=== PATIENT | male | born 1945 | race Caucasian/White ===

== ENCOUNTER → 2016-08-05 | Outpatient (CLI) | payer MEDICARE ==
[~2016-08-05] VITALS: Ht 188 cm; Wt 127.0 kg
[~2016-08-05] MED LIST: ASPI81TA85 PO; LIDOCAINE 2% INJ 100 MG/5 ML SDV (FOR ANES.) As Ordered ONE; METF750T PO; NS 1,000 ML IV SCH; PROPOFOL 500 MG/50 ML VIAL As Ordered ONE; ROSU10TA PO; TYLE325T5 PO
--- NOTE | 2016-08-05 13:51 | ROOR ---
Patient Name: Michael Pressley Procedure Date: 08/05/2016 1:24 PM Date of : 1945 Age: 70 Room: [facility] Gender: Male Note Status: Finalized Procedure: Colonoscopy to Cecum + Cold Snare Polypectomy + Hemoclip Indications: High risk colon cancer surveillance: Personal history of colonic polyps, Last colonoscopy: 2013 Providers: Aba Lyons MD Referring MD: ISIDORO SIMPSON JR, MD Requesting Provider: Medicines: Monitored Anesthesia Care Complications: No immediate complications. Procedure: Pre-Anesthesia Assessment: - The heart rate, respiratory rate, oxygen saturations, blood pressure, adequacy of pulmonary ventilation, and response to care were monitored throughout the procedure. The Colonoscope was introduced through the anus and advanced to the cecum, identified by appendiceal orifice and ileocecal valve. The colonoscopy was performed without difficulty. The patient tolerated the procedure well. The quality of the bowel preparation was excellent. Findings: The perianal and digital rectal examinations were normal. Non-bleeding internal hemorrhoids were found during retroflexion. The hemorrhoids were small and Grade I (internal hemorrhoids that do not prolapse). Multiple small and large-mouthed diverticula were found in the recto-sigmoid colon, sigmoid colon and descending colon. A medium polyp was found in the hepatic flexure. The polyp was sessile. The polyp was removed with a cold snare. Resection and retrieval were complete. To prevent bleeding after the polypectomy, one hemostatic clip was successfully placed (MR conditional). There was no bleeding at the end of the procedure. The exam was otherwise without abnormality on direct and retroflexion views. Impression: - Non-bleeding internal hemorrhoids. - Diverticulosis in the recto-sigmoid colon, in the sigmoid colon and in the descending colon. - One medium polyp at the hepatic flexure, removed with a cold snare. Resected and retrieved. Clip (MR conditional) was placed. - The examination was otherwise normal on direct and retroflexion views. - The exam was otherwise normal to the cecum. Recommendation: - Patient has a contact number available for emergencies. The signs and symptoms of potential delayed complications were discussed with the patient. Return to normal activities tomorrow. Written discharge instructions were provided to the patient. - High fiber diet. - Discharge patient to home. - Continue present medications. - Await pathology results. - Telephone GI clinic for pathology results in 1 week. - Repeat colonoscopy in 5 years for surveillance based on pathology results. - Return to referring physician. - The findings and recommendations were discussed with the patient's family. Aba Lyons MD Aba Lyons MD 08/05/2016 1:50:43 PM This report has been signed electronically. Number of Addenda: 0 Note Initiated On: 08/05/2016 1:24 PM Estimated Blood Loss: Estimated blood loss: none.
[2016-08-05 15:37] VITALS: BP 147/103
--- NOTE | 2016-08-07 09:54 | ECGEPIP ---
Stationary ECG Study [facility] - ED Test Date: 2016-08-05 Pat Name: DARRYL OLVERA Department: Room: - Gender: M Fnps: TONI : 1945 Requested By: Aba Lyons Order Number: [id number] Reading MD: Jose Matson Measurements Intervals [place] Rate: 68 P: 27 WY: 215 QRS: -25 QRSD: 112 T: 10 QT: 413 QTc: 441 Interpretive Statements SINUS RHYTHM WITH FIRST DEGREE AV BLOCK BORDERLINE LEFT AXIS DEVIATION MODERATE INTRAVENTRICULAR CONDUCTION DELAY SIMILAR TO 12/18/13 Electronically Signed On 08-07-2016 9:54:50 EST by Jose Matson
== END | disposition home or self-care (01) ==
LOC: M OPP 12:27
PROVIDERS: ATTEND Internal Medicine Gastroenterology
DX: Z12.11 Encounter for screening for malignant neoplasm of colon (principal); K64.0 First degree hemorrhoids; K57.30 Diverticulosis of large intestine without perforation or abscess without bleeding; D12.3 Benign neoplasm of transverse colon; E78.00 Pure hypercholesterolemia, unspecified; E11.9 Type 2 diabetes mellitus without complications; M19.90 Unspecified osteoarthritis, unspecified site; R06.83 Snoring; Z86.79 Personal history of other diseases of the circulatory system; Z79.82 Long term (current) use of aspirin; Z79.899 Other long term (current) drug therapy; Z79.84 Long term (current) use of oral hypoglycemic drugs

== ENCOUNTER 2016-10-04 16:29 | Day surgery (SDC) | payer MEDICARE ==
[~2016-10-04] VITALS: Ht 188 cm; Wt 127.0 kg
[~2016-10-04 16:29] MED LIST changes: +CRES10TA32 PO; -LIDOCAINE 2% INJ 100 MG/5 ML SDV (FOR ANES.) As Ordered ONE; -NS 1,000 ML IV SCH; -PROPOFOL 500 MG/50 ML VIAL As Ordered ONE; -ROSU10TA PO
[2016-10-04] MEDS ORDERED: CINN500C9 PO (16:46)
[2016-10-04] MEDS ORDERED: GARL1CAP PO (16:46)
[2016-10-04] MEDS ORDERED: NATU400T PO (16:46)
[2016-10-04] MEDS ORDERED: POTA99TA PO (16:46)
[2016-10-04] MEDS ORDERED: GLUCAGON FOR INJ 1 MG VIAL (J1610) IV STA ×2 (17:55→18:46)
[2016-10-04] MEDS ORDERED: PHENYLephrine HCL 500 MCG/5 ML (100MCG/ML) SYRINGE (J2370) As Ordered ONE (22:52)
[2016-10-04] MEDS ORDERED: MIDAZOLAM INJ 2 MG/2 ML VIAL (J2250) As Ordered ONE (22:52)
[2016-10-04] MEDS ORDERED: PROPOFOL 200 MG/20 ML VIAL As Ordered ONE (22:52)
[2016-10-04] MEDS ORDERED: fentaNYL 100 MCG/2 ML INJECTION (J3010) As Ordered ONE (22:52)
[2016-10-04] MEDS ORDERED: LIDOCAINE 2% INJ 100 MG/5 ML SDV (FOR ANES.) As Ordered ONE (22:52)
[2016-10-04] MEDS ORDERED: SUCCINYLCHOLINE 100 MG/5 ML SYRINGE (J0330) As Ordered ONE (22:52)
[2016-10-04] MEDS ORDERED: ONDANSETRON 4MG/2ML VIAL (J2405) As Ordered ONE (22:53)
--- NOTE | 2016-10-04 23:13 | ROOR ---
Patient Name: Perry Pressley Procedure Date: 10/04/2016 10:14 PM Date of : 1945 Age: 71 Gender: Male Note Status: Finalized Procedure: Upper GI endoscopy Indications: Heartburn, Foreign body in the esophagus Providers: Blayne ACRRERA MD Referring MD: Aba yLons MD, 3. Emergency Dept 3. Emergency Dept Requesting Provider: Medicines: Monitored Anesthesia Care Complications: No immediate complications. Procedure: Pre-Anesthesia Assessment: - The heart rate, respiratory rate, oxygen saturations, blood pressure, adequacy of pulmonary ventilation, and response to care were monitored throughout the procedure. The Endoscope was introduced through the mouth, and advanced to the second part of duodenum. Findings: Food was found in the lower third of the esophagus. Removal of food was accomplished. One moderate stenosis was found at the gastroesophageal junction. This measured 1 cm (in length) and was traversed. This was biopsied with a cold forceps for histology. The exam was otherwise without abnormality. Impression: - Food in the lower third of the esophagus. Removal was successful. - Esophagitis - Esophageal stenosis. Biopsied. - The examination was otherwise normal. Recommendation: - Use Prilosec (omeprazole) 40 mg PO daily. - Telephone endoscopist for pathology results in 2 weeks. - Repeat upper endoscopy at the next available appointment for retreatment/dilation of stricture. Blayne Carrera MD Blayne CARRERA MD 10/04/2016 11:13:06 PM This report has been signed electronically. Number of Addenda: 0 Note Initiated On: 10/04/2016 10:14 PM Estimated Blood Loss: Estimated blood loss: none.
[2016-10-04] MEDS ORDERED: ONDANSETRON 4MG/2ML VIAL (J2405) IV PRN (23:45)
[2016-10-04] MEDS ORDERED: PANTOPRAZOLE 40MG TAB (PROTONIX) PO ONE (23:45)
[2016-10-04] MEDS ORDERED: LR 1,000 ML IV SCH (23:45)
[2016-10-05 00:20] VITALS: BP 136/93
== END 2016-10-05 01:17 | disposition home or self-care (01) ==
LOC: M ED 17:35 → M SDC 21:15 → M MSPAV 10-05 00:20 → M SDC 10-05 01:17
PROVIDERS: ATTEND Internal Medicine Gastroenterology
DX: T18.128A Food in esophagus causing other injury, initial encounter (principal); K22.2 Esophageal obstruction; K20.9 Esophagitis, unspecified; R12 Heartburn; E78.5 Hyperlipidemia, unspecified; E66.9 Obesity, unspecified; G47.30 Sleep apnea, unspecified; E11.9 Type 2 diabetes mellitus without complications; I71.4 Abdominal aortic aneurysm, without rupture; R29.898 Other symptoms and signs involving the musculoskeletal system; R06.83 Snoring; R06.09 Other forms of dyspnea; Z79.899 Other long term (current) drug therapy; Z79.82 Long term (current) use of aspirin; Z87.442 Personal history of urinary calculi
CPT/HCPCS: 43239; 43247; 88305; 99281; J0330; J1610; J2250; J2370; J2405; J3010

== ENCOUNTER 2017-02-11 09:58 | Outpatient (CLI) | payer MEDICARE ==
[~2017-02-11] VITALS: Ht 188 cm; Wt 122.5 kg
[~2017-02-11 09:58] MED LIST changes: +CINN500C9 PO; +GARL10004 PO; +NATU400T PO; +PANT40TA2 PO; +POTA99TA PO
[2017-02-11] MEDS ORDERED: NS 1,000 ML IV ONE (10:15)
[2017-02-11] MEDS ORDERED: LIDOCAINE 2% INJ 100 MG/5 ML SDV (FOR ANES.) As Ordered ONE (10:43)
[2017-02-11] MEDS ORDERED: PROPOFOL 200 MG/20 ML VIAL As Ordered ONE (10:43)
--- NOTE | 2017-02-11 10:54 | ROOR ---
Patient Name: Perry Pressley Procedure Date: 02/11/2017 10:27 AM Date of : 1945 Age: 71 Room: [facility] Gender: Male Note Status: Finalized Procedure: Upper GI endoscopy Indications: Dysphagia Providers: Aba Lyons MD Referring MD: ISIDORO SIMPSON JR, MD Requesting Provider: Medicines: Monitored Anesthesia Care Complications: No immediate complications. Procedure: Pre-Anesthesia Assessment: - The heart rate, respiratory rate, oxygen saturations, blood pressure, adequacy of pulmonary ventilation, and response to care were monitored throughout the procedure. The Endoscope was introduced through the mouth, and advanced to the second part of duodenum. The upper GI endoscopy was accomplished without difficulty. The patient tolerated the procedure well. Findings: The Z-line was regular and was found 40 cm from the incisors. No other significant abnormalities were identified in a careful examination of the stomach. The exam of the duodenum was otherwise normal. Impression: - Z-line regular, 40 cm from the incisors. - No specimens collected. - The examination was otherwise normal. Recommendation: - Patient has a contact number available for emergencies. The signs and symptoms of potential delayed complications were discussed with the patient. Return to normal activities tomorrow. Written discharge instructions were provided to the patient. - Soft diet. - Discharge patient to home. - Follow an antireflux regimen. - Continue present medications. - Return to referring physician. - The findings and recommendations were discussed with the patient's family. Aba Lyons MD Aba Lyons MD 02/11/2017 10:53:55 AM This report has been signed electronically. Number of Addenda: 0 Note Initiated On: 02/11/2017 10:27 AM Estimated Blood Loss: Estimated blood loss: none.
[2017-02-11 11:10] VITALS: BP 163/93
== END 2017-02-11 11:35 | disposition home or self-care (01) ==
LOC: M OPP 09:58
PROVIDERS: ATTEND Internal Medicine Gastroenterology
DX: R13.10 Dysphagia, unspecified (principal); R63.4 Abnormal weight loss; R63.0 Anorexia; E78.5 Hyperlipidemia, unspecified; I71.4 Abdominal aortic aneurysm, without rupture; E11.9 Type 2 diabetes mellitus without complications; R12 Heartburn; M19.90 Unspecified osteoarthritis, unspecified site; M48.00 Spinal stenosis, site unspecified; G47.30 Sleep apnea, unspecified; R06.83 Snoring; Z87.442 Personal history of urinary calculi; Z79.82 Long term (current) use of aspirin; Z79.899 Other long term (current) drug therapy; Z79.84 Long term (current) use of oral hypoglycemic drugs; Z80.3 Family history of malignant neoplasm of breast

== ENCOUNTER → 2020-12-20 | Outpatient (CLI) | payer MEDICARE ==
[~2020-12-20] MED LIST changes: +AMLO1TAB24 PO; +ASPI81TA26 PO; -ASPI81TA85 PO; +ASPI81TA86 PO; +CINN500C15 PO; +CRES10TA PO; -CRES10TA32 PO; +GARL500C2 PO; -METF750T PO; +METF750T36 PO; -PANT40TA2 PO; +PANT40TA29 PO; +POTA99TA14 PO; +VITA400C53 PO; +VITMTA PO
== END ==
LOC: M LABSMTC 10:22
PROVIDERS: ATTEND Anesthesiology
DX: Z01.812 Encounter for preprocedural laboratory examination (principal)

== ENCOUNTER 2020-12-25 10:03 | Day surgery (SDC) | payer MEDICARE ==
[~2020-12-25] VITALS: Ht 188 cm; Wt 118.4 kg
[~2020-12-25 10:03] MED LIST changes: +NS 1,000 ML IV ONE
[2020-12-25] MEDS ORDERED: propofoL 200 MG/20 ML VIAL As Ordered ONE (11:47)
[2020-12-25] MEDS ORDERED: LIDOCAINE 2% 100MG/5ML SDV (FOR ANES.) As Ordered ONE (11:47)
--- NOTE | 2020-12-25 12:27 | ROOR ---
Patient Name: Perry Pressley Procedure Date: 12/25/2020 12:03 PM Date of : 1945 Age: 75 Room: [facility] Gender: Male Note Status: Finalized Procedure: Total Colonoscopy to Cecum + Cold Snare Polypectomy Indications: High risk colon cancer surveillance: Personal history of colonic polyps, Last colonoscopy: 2016 Providers: Aba Lyons MD Referring MD: ISIDORO SIMPSON JR, MD Requesting Provider: Medicines: Monitored Anesthesia Care Complications: No immediate complications. Procedure: Pre-Anesthesia Assessment: - The heart rate, respiratory rate, oxygen saturations, blood pressure, adequacy of pulmonary ventilation, and response to care were monitored throughout the procedure. The Colonoscope was introduced through the anus and advanced to the cecum, identified by appendiceal orifice and ileocecal valve. The colonoscopy was performed without difficulty. The patient tolerated the procedure well. The quality of the bowel preparation was good. Findings: The perianal and digital rectal examinations were normal. Non-bleeding internal hemorrhoids were found during retroflexion. The hemorrhoids were small and Grade I (internal hemorrhoids that do not prolapse). Scattered small-mouthed diverticula were found in the recto-sigmoid colon, sigmoid colon and descending colon. Two sessile polyps were found in the ascending colon. The polyps were small in size. These polyps were removed with a cold snare. Resection and retrieval were complete. The exam was otherwise without abnormality on direct and retroflexion views. Impression: - Non-bleeding internal hemorrhoids. - Diverticulosis in the recto-sigmoid colon, in the sigmoid colon and in the descending colon. - Two small polyps in the ascending colon, removed with a cold snare. Resected and retrieved. - The examination was otherwise normal on direct and retroflexion views. - The exam was otherwise normal to the cecum. Recommendation: - Patient has a contact number available for emergencies. The signs and symptoms of potential delayed complications were discussed with the patient. Return to normal activities tomorrow. Written discharge instructions were provided to the patient. - High fiber diet. - Discharge patient to home. - Continue present medications. - Await pathology results. - Telephone GI clinic for pathology results in 1 week. - Repeat colonoscopy in 5 years for surveillance based on pathology results. - Return to referring physician. - The findings and recommendations were discussed with the patient's family. Procedure Code(s): --- Professional --- 76105, Colonoscopy, flexible; with removal of tumor(s), polyp(s), or other lesion(s) by snare technique Diagnosis Code(s): --- Professional --- Z86.010, Personal history of colonic polyps K64.0, First degree hemorrhoids K63.5, Polyp of colon K57.30, Diverticulosis of large intestine without perforation or abscess without bleeding CPT copyright 2019 [employer]. All rights reserved. The codes documented in this report are preliminary and upon glass washer review may be revised to meet current compliance requirements. Aba Loyns MD Aba Lyons MD 12/25/2020 12:27:21 PM Electronically signed by Aba Lyons MD Number of Addenda: 0 Note Initiated On: 12/25/2020 12:03 PM Estimated Blood Loss: Estimated blood loss: none.
[2020-12-25 13:02] VITALS: BP 159/92
== END 2020-12-25 13:03 | disposition home or self-care (01) ==
LOC: M OPP 10:03
PROVIDERS: ATTEND Internal Medicine Gastroenterology
DX: Z12.11 Encounter for screening for malignant neoplasm of colon (principal); Z86.010 Personal history of colon polyps; D12.2 Benign neoplasm of ascending colon; K57.30 Diverticulosis of large intestine without perforation or abscess without bleeding; K64.0 First degree hemorrhoids; R13.10 Dysphagia, unspecified; Z79.82 Long term (current) use of aspirin; Z79.84 Long term (current) use of oral hypoglycemic drugs; Z79.899 Other long term (current) drug therapy

== ENCOUNTER → 2021-01-04 | Outpatient (CLI) | payer MEDICARE ==
[~2021-01-04] MED LIST changes: +ISOVUE-300 61% 50ML VIAL As Ordered ONE; +LIDOCAINE 1% MDV 20ML VIAL As Ordered ONE; -NS 1,000 ML IV ONE; +methylPREDNISolone SUSP 40MG/ML 1ML VIAL (DEPO MEDROL) As Ordered ONE
--- NOTE | 2021-01-04 19:34 | REP ---
INDICATION: RT SHOULDER OA. COMPARISON: None. TECHNIQUE: The procedure was performed under the direct supervision of Dr. Junior. The benefits and risks including but not limited to pain infection bleeding and anaphylaxis were explained to the patient and informed consent was obtained. The right glenohumeral joint space was localized using fluoroscopic guidance. The skin was prepped and draped in a sterile fashion. 1% lidocaine was used as a local anesthetic. Using fluoroscopic guidance, and last image hold technology, a 22 gauge spinal needle was inserted and advanced into the joint. 1 mL of Isovue-300 was injected to verify placement. 7 mL of a solution containing 5 mL of 1% lidocaine and 2 mL of Depo-Medrol 40 mg was injected. The needle was then removed. The patient tolerated the procedure well and there were no immediate complications. Less than 6 seconds of fluoroscopy time was utilized for this procedure. FINDINGS: None IMPRESSION: Fluoro guidance for right shoulder injection. <Electronically signed by Rommel Morgan > 01/04/21 1613 <Electronically signed by Steven Junior > 01/04/21 1931
== END ==
LOC: M RADPRO 10:27
PROVIDERS: ATTEND Physician Assistant
DX: M19.011 Primary osteoarthritis, right shoulder (principal)
CPT/HCPCS: 20610; 77002; J1030; Q9967

== ENCOUNTER 2021-03-04 07:17 | Day surgery (SDC) | payer MEDICARE ==
[~2021-03-04] VITALS: Ht 188 cm; Wt 117.9 kg
[~2021-03-04 07:17] MED LIST changes: -ISOVUE-300 61% 50ML VIAL As Ordered ONE; -LIDOCAINE 1% MDV 20ML VIAL As Ordered ONE; -methylPREDNISolone SUSP 40MG/ML 1ML VIAL (DEPO MEDROL) As Ordered ONE
[2021-03-04] MEDS ORDERED: GLUCAGON INJ 1MG VIAL IV STA (08:44)
[2021-03-04 09:19] LABS: BASO % 0.4 % (0.0-1.0); EOS # 0.1 10^3/uL (0.0-0.5); EOS % 0.8 % (0.0-3.0); HEMATOCRIT 47.2 % (42.0-52.0); HEMOGLOBIN 15.5 g/dl (13.5-17.5); LYMPH # 1.5 10^3/uL (1.5-5.0); LYMPH % 15.9 % (24.0-44.0); MEAN CORPUSCULAR HEMOGLOBIN 31.4 pg (27.0-33.0); MEAN CORPUSCULAR HGB CONC 32.8 g/dl (32.0-36.5); MEAN CORPUSCULAR VOLUME 95.7 fl (80.0-96.0); MONO # 0.6 10^3/uL (0.0-0.8); NEUTROPHILS # 6.9 10^3/uL (1.5-8.5); NEUTROPHILS % 75.6 % (36.0-66.0); PLATELET COUNT, AUTOMATED 223 10^3/uL (150-450); RED BLOOD COUNT 4.93 10^6/uL (4.30-6.10); WHITE BLOOD COUNT 9.1 10^3/uL (4.0-10.0)
[2021-03-04 09:56] LABS: BLOOD UREA NITROGEN 21 MG/DL (7-18); CALCIUM LEVEL 9.2 MG/DL (8.8-10.2); CARBON DIOXIDE LEVEL 29 MEQ/L (21-32); CHLORIDE LEVEL 110 MEQ/L (98-107); CREATININE FOR GFR 1.01 MG/DL (0.70-1.30); GLOMERULAR FILTRATION RATE > 60.0 (>42); GLUCOSE, FASTING 153 MG/DL (70-100); POTASSIUM SERUM 4.6 MEQ/L (3.5-5.1); SODIUM LEVEL 145 MEQ/L (136-145)
[2021-03-04 10:03] LABS: RSV AMPLIFICATION NEGATIVE (NEGATIVE)
[2021-03-04] MEDS ORDERED: ROSU20TA5 PO (10:33)
[2021-03-04] MEDS ORDERED: HOME MED LIST COMPLETE! XX SCH (10:35)
[2021-03-04] MEDS ORDERED: MIDAZOLAM INJ 2MG/2ML VIAL (J2250 PER 1MG) As Ordered ONE (13:36)
[2021-03-04] MEDS ORDERED: propofoL 200 MG/20 ML VIAL As Ordered ONE (13:36)
[2021-03-04] MEDS ORDERED: LIDOCAINE 2% 100MG/5ML SDV (FOR ANES.) As Ordered ONE (13:36)
[2021-03-04] MEDS ORDERED: fentaNYL 100 MCG/2 ML INJECTION (J3010) As Ordered ONE (13:36)
[2021-03-04] MEDS ORDERED: ROCURONIUM BROMIDE 50 MG/5 ML VIAL As Ordered ONE (13:46)
[2021-03-04] MEDS ORDERED: SUGAMMADEX SODIUM 500 MG/5 ML VIAL (BRIDION) As Ordered ONE (14:08)
[2021-03-04] MEDS ORDERED: LR 1,000 ML IV SCH (15:10)
[2021-03-04] MEDS ORDERED: ONDANSETRON 4MG/2ML VIAL IV PRN (15:10)
[2021-03-04] MEDS ORDERED: fentaNYL 100 MCG/2 ML INJECTION (J3010) IV PRN (15:10)
--- NOTE | 2021-03-04 15:13 | ROOR ---
Patient Name: Perry Pressley Procedure Date: 03/04/2021 11:58 AM Date of : 1945 Age: 75 Gender: Male Note Status: Finalized Procedure: Upper GI endoscopy Indications: Foreign body in the esophagus Providers: Blayne Carrera MD Referring MD: 2. Inpatient 2. Inpatient, Aba Lyons MD Requesting Provider: Medicines: General Anesthesia Complications: No immediate complications. Procedure: Pre-Anesthesia Assessment: - The heart rate, respiratory rate, oxygen saturations, blood pressure, adequacy of pulmonary ventilation, and response to care were monitored throughout the procedure. The Endoscope was introduced through the mouth, and advanced to the second part of duodenum. The upper GI endoscopy was accomplished without difficulty. The patient tolerated the procedure well. Findings: Food was found in the lower third of the esophagus. Removal of food was accomplished. Moderately severe esophagitis was found in the lower third of the esophagus. Biopsies were taken with a cold forceps for histology. A single 15 mm pedunculated polyp with stigmata of recent bleeding was found in the cardia. The polyp was removed with a cold snare. Resection and retrieval were complete. To prevent bleeding after the polypectomy, three hemostatic clips were successfully placed. A single 10 mm semi-sessile polyp with no stigmata of recent bleeding was found in the gastric antrum. The polyp was removed with a cold snare. Resection and retrieval were complete. To prevent bleeding after the polypectomy, two hemostatic clips were successfully placed. The exam of the stomach was otherwise normal. The examined duodenum was normal. Impression: - Food in the lower third of the esophagus. Removal was successful. - Moderately severe esophagitis. Biopsied. - A single gastric cardia polyp-pedunculated, hemorrhagic appearing, 1.5 cm. Resected and retrieved. Clips were placed. - A single gastric antrum polyp-semisessile, pale, 1.0 cm. Resected and retrieved. Clips were placed. - Normal examined duodenum. Recommendation: - Telephone endoscopist for pathology results in 2 weeks. - Please make appointment for follow up with Gastroenterology/ in 2-4 weeks. - Use Prilosec (omeprazole) 40 mg PO daily. - (the script was sent to your pharmacy on file) Procedure Code(s): --- Professional --- 20121, Esophagogastroduodenoscopy, flexible, transoral; with removal of tumor(s), polyp(s), or other lesion(s) by snare technique 99032, Esophagogastroduodenoscopy, flexible, transoral; with removal of foreign body(s) 72435, 59, Esophagogastroduodenoscopy, flexible, transoral; with biopsy, single or multiple Diagnosis Code(s): --- Professional --- T18.108A, Unspecified foreign body in esophagus causing other injury, initial encounter K31.7, Polyp of stomach and duodenum K20.9, Esophagitis, unspecified T18.128A, Food in esophagus causing other injury, initial encounter CPT copyright 2019 [employer]. All rights reserved. The codes documented in this report are preliminary and upon handbell choir director review may be revised to meet current compliance requirements. Blayne Carrera MD Blayne Carrera MD 03/04/2021 3:13:13 PM Electronically signed by Blayne Carrera MD Number of Addenda: 0 Note Initiated On: 03/04/2021 11:58 AM Estimated Blood Loss: Estimated blood loss: none.
[2021-03-04 16:05] VITALS: BP 153/80
[2021-03-05] MEDS ORDERED: PANTOPRAZOLE 40MG TAB (PROTONIX) PO SCH (09:00)
== END 2021-03-04 18:40 | disposition home or self-care (01) ==
LOC: M ED 07:17 → M SDC 11:35 → M MS5PR 14:20 → M SDC 18:40
PROVIDERS: ATTEND Internal Medicine Gastroenterology
DX: T18.128A Food in esophagus causing other injury, initial encounter (principal); K31.7 Polyp of stomach and duodenum; K20.90 Esophagitis, unspecified without bleeding; Y92.89 Other specified places as the place of occurrence of the external cause; K21.9 Gastro-esophageal reflux disease without esophagitis; J45.909 Unspecified asthma, uncomplicated; E11.9 Type 2 diabetes mellitus without complications; Z79.82 Long term (current) use of aspirin; Z79.84 Long term (current) use of oral hypoglycemic drugs; Z79.899 Other long term (current) drug therapy
CPT/HCPCS: 43239; 43247; 43251; 80048; 85025; 87631; 88305; 96374; 99284; J1610; J2250; J3010

== ENCOUNTER 2021-03-11 07:26 | Emergency (ER) | payer MEDICARE ==
[~2021-03-11] VITALS: Ht 188 cm; Wt 118.6 kg
[~2021-03-11 07:26] MED LIST changes: +ROSU20TA5 PO
[2021-03-11] MEDS ORDERED: HOME MED LIST COMPLETE! XX SCH (10:15)
[2021-03-11 10:32] VITALS: BP 157/88
== END 2021-03-11 10:53 | disposition home or self-care (01) ==
LOC: M ED 07:26
DX: T18.128A Food in esophagus causing other injury, initial encounter (principal); Y92.9 Unspecified place or not applicable; Y93.9 Activity, unspecified; E11.9 Type 2 diabetes mellitus without complications; I10 Essential (primary) hypertension; K21.9 Gastro-esophageal reflux disease without esophagitis; J45.909 Unspecified asthma, uncomplicated; Z87.442 Personal history of urinary calculi; I71.9 Aortic aneurysm of unspecified site, without rupture; Z79.82 Long term (current) use of aspirin; Z79.84 Long term (current) use of oral hypoglycemic drugs; Z79.899 Other long term (current) drug therapy
CPT/HCPCS: 99284; U0002

== ENCOUNTER 2021-03-11 08:51 | Day surgery (SDC) | payer MEDICARE ==
[2021-03-11] MEDS ORDERED: propofoL 200 MG/20 ML VIAL As Ordered ONE (10:33)
[2021-03-11] MEDS ORDERED: ROCURONIUM BROMIDE 50 MG/5 ML VIAL As Ordered ONE (10:33)
[2021-03-11] MEDS ORDERED: LIDOCAINE 2% 100MG/5ML SDV (FOR ANES.) As Ordered ONE (10:33)
[2021-03-11] MEDS ORDERED: fentaNYL 100 MCG/2 ML INJECTION (J3010) As Ordered ONE (11:20)
[2021-03-11] MEDS ORDERED: METOCLOPRAMIDE INJ 10MG/2ML VIAL (J2765 PER 1) As Ordered ONE (11:35)
[2021-03-11] MEDS ORDERED: ONDANSETRON 4MG/2ML VIAL As Ordered ONE (11:35)
[2021-03-11] MEDS ORDERED: dexameTHASONE 4 MG/ML 1ML VIAL (J1100 PER 1MG) As Ordered ONE (11:35)
--- NOTE | 2021-03-11 11:54 | ROOR ---
Patient Name: Perry Pressley Procedure Date: 03/11/2021 11:36 AM Date of : 1945 Age: 75 Room: [facility] Gender: Male Note Status: Finalized Procedure: Upper GI endoscopy Indications: Foreign body in the esophagus Providers: Blayne Carrera MD Referring MD: 2. Inpatient 2. Inpatient Requesting Provider: Medicines: Monitored Anesthesia Care Complications: No immediate complications. Procedure: Pre-Anesthesia Assessment: - The heart rate, respiratory rate, oxygen saturations, blood pressure, adequacy of pulmonary ventilation, and response to care were monitored throughout the procedure. The Endoscope was introduced through the mouth, and advanced to the second part of duodenum. The upper GI endoscopy was accomplished without difficulty. The patient tolerated the procedure well. Findings: Food was found in the lower third of the esophagus. Removal of food was accomplished. Mildly severe esophagitis was found in the lower third of the esophagus. I do not see a definite stricture, however there may be some edema and perhaps a bit of a taper to the distal esophagus. A TTS dilator was passed through the scope. Dilation with a 15-16.5-18 mm balloon dilator was performed to 18 mm in the lower third of the esophagus. The entire examined stomach was normal. (The endoclips placed for the two polypectomies on 03/04 are seen in cardia and in antrum) The examined duodenum was normal. Impression: - Food in the lower third of the esophagus. Removal was successful. - Mildly severe esophagitis. No definite stricture seen as cause for food impaction. - Dilation performed in the lower third of the esophagus. - Normal stomach. (clips seen in cardia and antrum) - Normal examined duodenum. Recommendation: - Soft diet. - Continue present medications. - Follow up with your Employment Clerk/Dr Lyons as previously scheduled. Procedure Code(s): --- Professional --- 68144, Esophagogastroduodenoscopy, flexible, transoral; with removal of foreign body(s) 45103, Esophagogastroduodenoscopy, flexible, transoral; with transendoscopic balloon dilation of esophagus (less than 30 mm diameter) Diagnosis Code(s): --- Professional --- T18.108A, Unspecified foreign body in esophagus causing other injury, initial encounter K20.9, Esophagitis, unspecified T18.128A, Food in esophagus causing other injury, initial encounter CPT copyright 2019 [employer]. All rights reserved. The codes documented in this report are preliminary and upon rn mental health review may be revised to meet current compliance requirements. Blayne Carrera MD Blayne Carrera MD 03/11/2021 11:54:22 AM Electronically signed by Blayne Carrera MD Number of Addenda: 0 Note Initiated On: 03/11/2021 11:36 AM Estimated Blood Loss: Estimated blood loss: none.
[2021-03-11 12:08] VITALS: BP 170/95
[2021-03-11] MEDS ORDERED: ONDANSETRON 4MG/2ML VIAL IV PRN (12:25)
[2021-03-11] MEDS ORDERED: LR 1,000 ML IV SCH (12:25)
== END 2021-03-11 12:35 | disposition home or self-care (01) ==
LOC: M SDC 08:51
PROVIDERS: ATTEND Internal Medicine Gastroenterology
DX: T18.128A Food in esophagus causing other injury, initial encounter (principal); Y92.89 Other specified places as the place of occurrence of the external cause; K20.90 Esophagitis, unspecified without bleeding; J45.909 Unspecified asthma, uncomplicated; E11.9 Type 2 diabetes mellitus without complications; K21.9 Gastro-esophageal reflux disease without esophagitis; Z79.82 Long term (current) use of aspirin; Z79.84 Long term (current) use of oral hypoglycemic drugs
CPT/HCPCS: 43247; 43249; J1100; J2405; J2765; J3010

== ENCOUNTER → 2021-04-23 | Outpatient (CLI) | payer MEDICARE ==
[~2021-04-23] MED LIST changes: +ISOVUE-300 61% 50ML VIAL As Ordered ONE; +LIDOCAINE 1% MDV 20ML VIAL As Ordered ONE; +methylPREDNISolone SUSP 40MG/ML 1ML VIAL (DEPO MEDROL) As Ordered ONE
--- NOTE | 2021-04-24 08:18 | REP ---
INDICATION: OSTEOARTHRITIS. COMPARISON: None TECHNIQUE: The procedure was performed by GOPAL Parker, under the direct supervision of Dr. Bhardwaj. The benefits and risks of the procedure were explained to the patient, and an informed consent was obtained. Directly prior to the start of the procedure, a formal time-out was completed in the procedure room. The right shoulder joint space was localized using fluoroscopic guidance. The skin was prepped and draped in a sterile fashion. Approximately 5 mL of 1% Lidocaine 10 mg/ml was used as a local anesthetic. Using fluoroscopic guidance, a #22 gauge spinal needle was inserted and advanced into the right shoulder joint space. Approximately 2 mL of Isovue 300 was injected to verify placement. Seven mL of a solution containing 5 mL 1% lidocaine 10 mg/ml and 2 mL Depo-Medrol 40 mg/mL was injected into the joint space. The needle was removed and hemostasis was achieved. FINDINGS: The patient tolerated the procedure well and there were no immediate complications. IMPRESSION: 1. Technically successful right shoulder injection. 0.1 minutes of fluoroscopy time was utilized for this procedure. Some fluoroscopic images are performed with last image hold technology. These images require no additional radiation. <Electronically signed by Ivana Tellez > 04/23/21 1200 <Electronically signed by Otis Bhardwaj > 04/24/21 8655
== END ==
LOC: M RADPRO 10:44
PROVIDERS: ATTEND Physician Assistant
DX: M19.011 Primary osteoarthritis, right shoulder (principal)
CPT/HCPCS: 20610; 77002; J1030; Q9967

== ENCOUNTER → 2021-09-10 | Outpatient (CLI) | payer MEDICARE ==
[~2021-09-10] MED LIST changes: -ISOVUE-300 61% 50ML VIAL As Ordered ONE; -LIDOCAINE 1% MDV 20ML VIAL As Ordered ONE; -methylPREDNISolone SUSP 40MG/ML 1ML VIAL (DEPO MEDROL) As Ordered ONE
== END ==
LOC: M PLAIMG 12:24
PROVIDERS: ATTEND Orthopaedic Surgery
DX: M75.101 Unspecified rotator cuff tear or rupture of right shoulder, not specified as traumatic (principal); M19.011 Primary osteoarthritis, right shoulder

== ENCOUNTER → 2021-10-03 | Outpatient (CLI) | payer MEDICARE | LOC: M WUC 13:03 | PROVIDERS: ATTEND Internal Medicine | DX: R06.02 Shortness of breath (principal) ==

== ENCOUNTER → 2021-11-27 | Outpatient (CLI) | payer MEDICARE | LOC: M PLAIMG 07:07 | PROVIDERS: ATTEND Internal Medicine | DX: M50.121 Cervical disc disorder at C4-C5 level with radiculopathy (principal); M50.122 Cervical disc disorder at C5-C6 level with radiculopathy; M50.123 Cervical disc disorder at C6-C7 level with radiculopathy; M47.22 Other spondylosis with radiculopathy, cervical region ==

== ENCOUNTER 2022-12-20 14:22 | Inpatient (IN) | payer MEDICARE ==
[~2022-12-20] VITALS: Ht 188 cm; Wt 108.9 kg
[~2022-12-20 14:22] MED LIST changes: -ROSU20TA5 PO; +ROSU20TA61 PO
[2022-12-20 14:56] LABS: VENOUS BASE EXCESS -1.1 (-2.0-2.0); VENOUS HCO3 24.3 MMOL/L (23.0-27.0); VENOUS O2 SATURATION 66.8 % (60.0-80.0); VENOUS PARTIAL PRESSURE CO2 43.3 mmHg (38.0-50.0); VENOUS PARTIAL PRESSURE O2 35.3 mmHg (30.0-50.0); VENOUS PH 7.367 UNITS (7.330-7.430); VENOUS STANDARD HCO3 22.8 MMOL/L; VENOUS TOTAL CO2 25.6 MMOL/L (24.0-28.0)
[2022-12-20 15:16] LABS: BASO # 0.1 10^3/uL (0.0-0.2); BASO % 0.5 % (0.0-1.0); EOS # 0.1 10^3/uL (0.0-0.5); HEMATOCRIT 42.5 % (42.0-52.0); HEMOGLOBIN 13.3 g/dl (13.5-17.5); LYMPH # 1.2 10^3/uL (1.5-5.0); LYMPH % 12.9 % (24.0-44.0); MEAN CORPUSCULAR HEMOGLOBIN 31.7 pg (27.0-33.0); MEAN CORPUSCULAR HGB CONC 31.3 g/dl (32.0-36.5); MEAN CORPUSCULAR VOLUME 101.2 fl (80.0-96.0); MONO # 0.7 10^3/uL (0.0-0.8); MONO % 7.4 % (2.0-8.0); NEUTROPHILS # 7.5 10^3/uL (1.5-8.5); NEUTROPHILS % 77.8 % (36.0-66.0); PLATELET COUNT, AUTOMATED 272 10^3/uL (150-450); WHITE BLOOD COUNT 9.6 10^3/uL (4.0-10.0)
[2022-12-20 15:28] LABS: LIPASE 36 U/L (12-53)
[2022-12-20 15:29] LABS: CK-MB VALUE MASS < 1.0 NG/ML (<3.6); ETHYL ALCOHOL (ETHANOL) < 0.003 % (0.000-0.010)
[2022-12-20 15:30] LABS: SALICYLATE LEVEL < 3.0 MG/DL (<30)
[2022-12-20 15:31] LABS: ACETAMINOPHEN LEVEL 2.5 UG/ML (10.0-20.0); ALBUMIN 2.7 G/DL (3.2-5.2); ALKALINE PHOSPHATASE 158 U/L (46-116); ALT/SGPT 83 U/L (7.0-40); AST/SGOT 229 U/L (<34); BILIRUBIN,DIRECT 0.2 MG/DL (<0.4); BILIRUBIN,TOTAL 0.7 MG/DL (0.3-1.2); BLOOD UREA NITROGEN 19 MG/DL (9-23); CALCIUM LEVEL 9.4 MG/DL (8.3-10.6); CARBON DIOXIDE LEVEL 28 MMOL/L (20-31); CHLORIDE LEVEL 106 MMOL/L (98-107); CREATININE FOR GFR 0.71 MG/DL (0.70-1.30); GLOMERULAR FILTRATION RATE > 60.0 (>42); GLUCOSE, FASTING 163 MG/DL (74-106); POTASSIUM SERUM 4.6 MMOL/L (3.5-5.1); SODIUM LEVEL 140 MMOL/L (136-145)
[2022-12-20 15:32] LABS: FREE T4 0.75 NG/DL (0.89-1.76); THYROID STIMULATING HORMONE 1.089 uIU/ML (0.55-4.78)
[2022-12-20 15:33] LABS: CPK CREATINE PHOSPHOKINASE 21 U/L (46-171); INR 1.1; MB/CK RELATIVE INDEX 4.76 (< OR =4); PROTHROMBIN TIME 14.4 SECONDS (12.5-14.5)
[2022-12-20 15:43] LABS: OSMOLALITY SERUM 298 MOSM/KG (280-301)
[2022-12-20 16:44] LABS: CK-MB VALUE MASS < 1.0 NG/ML (<3.6)
[2022-12-20 16:46] LABS: CPK CREATINE PHOSPHOKINASE 22 U/L (46-171); MB/CK RELATIVE INDEX 4.54 (< OR =4)
[2022-12-20] MEDS ORDERED: MAALOX 30 ML SUSP *UDC PO PRN (18:05)
[2022-12-20] MEDS ORDERED: MOM 30ML SUSPENSION UDC PO PRN (18:05)
[2022-12-20] MEDS ORDERED: GLUCOSE 4GM CHEW TABLET PO PRN (18:10)
[2022-12-20] MEDS ORDERED: DEXTROSE 50% 50ML SYRINGE IV PRN (18:10)
[2022-12-20] MEDS ORDERED: GLUCAGON INJ 1MG VIAL SC PRN (18:10)
[2022-12-20] MEDS: NS 1,000 ML IV SCH (18:22)
[2022-12-20 20:04] LABS: CK-MB VALUE MASS < 1.0 NG/ML (<3.6)
[2022-12-20 20:05] LABS: CPK CREATINE PHOSPHOKINASE 22 U/L (46-171); MB/CK RELATIVE INDEX 4.54 (< OR =4)
[2022-12-20 20:41] LABS: HEPATITIS B CORE ANTIBODY IGM NEGATIVE (NEGATIVE); HEPATITIS C VIRUS ABY INDEX 0.08 INDEX (<0.8)
[2022-12-20] MEDS ORDERED: MAGN400T2 PO (20:56)
[2022-12-20] MEDS ORDERED: VITA100065 PO (20:56)
[2022-12-20] MEDS ORDERED: VITA-148 PO (20:56)
[2022-12-20] MEDS ORDERED: GABA-1171 PO (20:56)
[2022-12-20] MEDS ORDERED: D-101000 PO (20:56)
[2022-12-20] MEDS ORDERED: GALZ50CA PO (20:56)
[2022-12-20] MEDS ORDERED: VITA-259 PO (20:56)
[2022-12-20] MEDS ORDERED: VITA400C83 PO (20:58)
[2022-12-20] MEDS: DOCUSATE SODIUM 100MG CAPSULE PO SCH (21:00)
[2022-12-20] MEDS: INSULIN LISPRO (NovoLOG) PER UNIT SC SCH (21:00)
[2022-12-20] MEDS ORDERED: HOME MED LIST COMPLETE! XX SCH (21:00)
[2022-12-21] MEDS: NS 1,000 ML IV SCH (04:27)
[2022-12-21 06:02] LABS: BASO # 0.1 10^3/uL (0.0-0.2); BASO % 0.8 % (0.0-1.0); EOS # 0.2 10^3/uL (0.0-0.5); EOS % 1.8 % (0.0-3.0); HEMOGLOBIN 12.1 g/dl (13.5-17.5); LYMPH # 1.1 10^3/uL (1.5-5.0); LYMPH % 11.9 % (24.0-44.0); MEAN CORPUSCULAR HGB CONC 31.8 g/dl (32.0-36.5); MEAN CORPUSCULAR VOLUME 100.5 fl (80.0-96.0); MONO # 0.7 10^3/uL (0.0-0.8); MONO % 8.1 % (2.0-8.0); NEUTROPHILS # 6.8 10^3/uL (1.5-8.5); NEUTROPHILS % 76.9 % (36.0-66.0); PLATELET COUNT, AUTOMATED 244 10^3/uL (150-450); RED BLOOD COUNT 3.78 10^6/uL (4.30-6.10); WHITE BLOOD COUNT 8.9 10^3/uL (4.0-10.0)
[2022-12-21 06:32] LABS: BLOOD UREA NITROGEN 15 MG/DL (9-23); CALCIUM LEVEL 8.4 MG/DL (8.3-10.6); CARBON DIOXIDE LEVEL 26 MMOL/L (20-31); CHLORIDE LEVEL 106 MMOL/L (98-107); CREATININE FOR GFR 0.57 MG/DL (0.70-1.30); GLOMERULAR FILTRATION RATE > 60.0 (>42); GLUCOSE, FASTING 104 MG/DL (74-106); MAGNESIUM LEVEL 1.9 MG/DL (1.8-2.4); POTASSIUM SERUM 4.5 MMOL/L (3.5-5.1); SODIUM LEVEL 143 MMOL/L (136-145)
[2022-12-21] MEDS: INSULIN LISPRO (NovoLOG) PER UNIT SC SCH ×4 (07:30→21:00)
[2022-12-21] MEDS: MULTIVITAMINS/MINERALS THERAP 1 TAB PO SCH (09:54)
[2022-12-21] MEDS: MAGNESIUM OXIDE 400MG TAB (MAG-OX) PO SCH (09:54)
[2022-12-21] MEDS: DOCUSATE SODIUM 100MG CAPSULE PO SCH ×2 (09:55→20:10)
[2022-12-21] MEDS: amLODIPine 5 MG TAB PO SCH (09:55)
[2022-12-21] MEDS: ASCORBIC ACID 500 MG TAB PO SCH (09:55)
[2022-12-21] MEDS: ENOXAPARIN 40MG/0.4ML SYRINGE (J1650 PER 10MG) SC SCH (09:55)
[2022-12-21] MEDS: ROSUVASTATIN 10 MG TAB (CRESTOR) PO SCH (09:55)
[2022-12-21] MEDS: VITAMIN D 1,000 INTERNATIONAL UNITS TABLET PO SCH (09:55)
[2022-12-21] MEDS: GABAPENTIN 100 MG CAP PO SCH ×3 (09:55→20:10)
[2022-12-21] MEDS: VITAMIN E 400 INTERNATIONAL UNITS CAP PO SCH (09:56)
[2022-12-21 11:14] VITALS: BP 125/86; TEMP 97.9; O2SAT 98
[2022-12-21] MEDS ORDERED: ISOVUE-370 76% 100ML VIAL As Ordered ONE (11:38)
[2022-12-21 12:03] LABS: ALBUMIN 2.4 G/DL (3.2-5.2); ALKALINE PHOSPHATASE 137 U/L (46-116); ALT/SGPT 71 U/L (7.0-40); AST/SGOT 212 U/L (<34); BILIRUBIN,DIRECT 0.2 MG/DL (<0.4); BILIRUBIN,TOTAL 0.8 MG/DL (0.3-1.2); TOTAL PROTEIN 5.3 G/DL (5.7-8.2)
[2022-12-21] MEDS: OMEPRAZOLE 20MG CAP PO SCH (12:47)
[2022-12-21] MEDS: LIDOCAINE 5% (LIDODERM) PATCH TD SCH (12:48)
[2022-12-21 14:00] VITALS: BP 121/83; TEMP 98.1; O2SAT 97
[2022-12-21] MEDS: ACETAMINOPHEN TAB 650MG DOSE (2X325MG) PO PRN (17:17)
[2022-12-21 19:59] VITALS: BP 125/68; TEMP 97.9; O2SAT 97
[2022-12-21] MEDS ORDERED: ASPIRIN 81MG ENTERIC TABLET PO SCH (21:00)
[2022-12-22 04:51] VITALS: BP 118/79; TEMP 98.4; O2SAT 94
[2022-12-22] MEDS: ACETAMINOPHEN TAB 650MG DOSE (2X325MG) PO PRN (05:14)
[2022-12-22 06:39] LABS: BASO # 0.1 10^3/uL (0.0-0.2); BASO % 0.9 % (0.0-1.0); EOS # 0.1 10^3/uL (0.0-0.5); EOS % 1.4 % (0.0-3.0); HEMATOCRIT 37.8 % (42.0-52.0); HEMOGLOBIN 12.1 g/dl (13.5-17.5); LYMPH # 0.9 10^3/uL (1.5-5.0); LYMPH % 10.5 % (24.0-44.0); MEAN CORPUSCULAR HEMOGLOBIN 31.9 pg (27.0-33.0); MEAN CORPUSCULAR VOLUME 99.7 fl (80.0-96.0); MONO # 0.8 10^3/uL (0.0-0.8); MONO % 8.8 % (2.0-8.0); NEUTROPHILS # 6.8 10^3/uL (1.5-8.5); NEUTROPHILS % 77.9 % (36.0-66.0); PLATELET COUNT, AUTOMATED 278 10^3/uL (150-450); RED BLOOD COUNT 3.79 10^6/uL (4.30-6.10); WHITE BLOOD COUNT 8.7 10^3/uL (4.0-10.0)
[2022-12-22 07:09] LABS: ALBUMIN 2.4 G/DL (3.2-5.2); ALKALINE PHOSPHATASE 142 U/L (46-116); ALT/SGPT 71 U/L (7.0-40); AST/SGOT 197 U/L (<34); BILIRUBIN,DIRECT 0.3 MG/DL (<0.4); BILIRUBIN,TOTAL 0.8 MG/DL (0.3-1.2); BLOOD UREA NITROGEN 16 MG/DL (9-23); CARBON DIOXIDE LEVEL 27 MMOL/L (20-31); CHLORIDE LEVEL 104 MMOL/L (98-107); GLOMERULAR FILTRATION RATE > 60.0 (>42); GLUCOSE, FASTING 114 MG/DL (74-106); MAGNESIUM LEVEL 1.9 MG/DL (1.8-2.4); POTASSIUM SERUM 4.3 MMOL/L (3.5-5.1); SODIUM LEVEL 140 MMOL/L (136-145); TOTAL PROTEIN 5.4 G/DL (5.7-8.2)
[2022-12-22] MEDS: LIDOCAINE 5% (LIDODERM) PATCH TD SCH (08:44)
[2022-12-22] MEDS: OMEPRAZOLE 20MG CAP PO SCH (08:45)
[2022-12-22] MEDS: INSULIN LISPRO (NovoLOG) PER UNIT SC SCH ×2 (08:45→11:03)
[2022-12-22] MEDS: ROSUVASTATIN 10 MG TAB (CRESTOR) PO SCH (08:45)
[2022-12-22] MEDS: ENOXAPARIN 40MG/0.4ML SYRINGE (J1650 PER 10MG) SC SCH (08:45)
[2022-12-22] MEDS: MAGNESIUM OXIDE 400MG TAB (MAG-OX) PO SCH (08:46)
[2022-12-22] MEDS: VITAMIN E 400 INTERNATIONAL UNITS CAP PO SCH (08:46)
[2022-12-22] MEDS: DOCUSATE SODIUM 100MG CAPSULE PO SCH (08:46)
[2022-12-22] MEDS: ASCORBIC ACID 500 MG TAB PO SCH (08:46)
[2022-12-22] MEDS: GABAPENTIN 100 MG CAP PO SCH ×3 (08:46→20:27)
[2022-12-22] MEDS: MULTIVITAMINS/MINERALS THERAP 1 TAB PO SCH (08:46)
[2022-12-22 08:49] VITALS: BP 118/84
[2022-12-22] MEDS: amLODIPine 5 MG TAB PO SCH (08:49)
[2022-12-22] MEDS: VITAMIN D 1,000 INTERNATIONAL UNITS TABLET PO SCH (08:49)
[2022-12-22 14:00] VITALS: BP 119/72; TEMP 98.1; O2SAT 96
[2022-12-22] MEDS: LORazepam 1 MG TAB PO PRN (20:27)
[2022-12-22] MEDS: MORPHINE 10MG/0.5ML ORAL CONCENTRATE SOLUTION U/D SL PRN (23:23)
[2022-12-23] MEDS: MORPHINE 10MG/0.5ML ORAL CONCENTRATE SOLUTION U/D SL PRN ×4 (03:17→22:28)
[2022-12-23] MEDS: OMEPRAZOLE 20MG CAP PO SCH (09:17)
[2022-12-23] MEDS: GABAPENTIN 100 MG CAP PO SCH ×3 (09:17→22:27)
[2022-12-23] MEDS: ROSUVASTATIN 10 MG TAB (CRESTOR) PO SCH (09:17)
[2022-12-23] MEDS: LIDOCAINE 5% (LIDODERM) PATCH TD SCH (09:18)
[2022-12-23] MEDS ORDERED: LIDOCAINE 1% MDV 20ML VIAL As Ordered ONE (10:32)
[2022-12-23 10:35] VITALS: TEMP 98.3
[2022-12-23 12:20] VITALS: BP 111/69; O2SAT 95
[2022-12-23] MEDS ORDERED: CEPACOL LOZENGE PO PRN (18:40)
[2022-12-23] MEDS: guaiFENesin/CODEINE SYRUP 5 ML UDC PO PRN ×2 (18:47→22:27)
[2022-12-24] MEDS: guaiFENesin/CODEINE SYRUP 5 ML UDC PO PRN ×2 (04:55→18:29)
[2022-12-24] MEDS: MORPHINE 10MG/0.5ML ORAL CONCENTRATE SOLUTION U/D SL PRN ×3 (08:42→17:10)
[2022-12-24] MEDS: ROSUVASTATIN 10 MG TAB (CRESTOR) PO SCH (08:42)
[2022-12-24] MEDS: OMEPRAZOLE 20MG CAP PO SCH (08:42)
[2022-12-24] MEDS: GABAPENTIN 100 MG CAP PO SCH ×3 (08:42→21:00)
[2022-12-24] MEDS: LIDOCAINE 5% (LIDODERM) PATCH TD SCH (08:43)
[2022-12-24] MEDS: LORazepam 1 MG TAB PO PRN (10:46)
[2022-12-24] MEDS: MIRALAX *UNIT DOSE* 17GM PACKET PO SCH (12:17)
[2022-12-24] MEDS: DOCUSATE SODIUM 100MG CAPSULE PO SCH ×2 (12:17→21:00)
[2022-12-24] MEDS: SCOPOLAMINE 1MG TRANSDERMAL PATCH TOP PRN (18:30)
[2022-12-25] MEDS: MORPHINE 10MG/0.5ML ORAL CONCENTRATE SOLUTION U/D SL PRN ×5 (04:56→23:32)
[2022-12-25] MEDS: OMEPRAZOLE 20MG CAP PO SCH (09:00)
[2022-12-25] MEDS: DOCUSATE SODIUM 100MG CAPSULE PO SCH ×2 (09:00→21:00)
[2022-12-25] MEDS: MIRALAX *UNIT DOSE* 17GM PACKET PO SCH (09:00)
[2022-12-25] MEDS: ROSUVASTATIN 10 MG TAB (CRESTOR) PO SCH (09:00)
[2022-12-25] MEDS: LIDOCAINE 5% (LIDODERM) PATCH TD SCH (09:00)
[2022-12-25] MEDS: GABAPENTIN 100 MG CAP PO SCH ×3 (09:00→21:00)
[2022-12-25] MEDS: LORazepam 1 MG TAB PO PRN ×2 (09:11→21:38)
[2022-12-25] MEDS: guaiFENesin/CODEINE SYRUP 5 ML UDC PO PRN (11:20)
[2022-12-25] MEDS: HYOSCYAMINE SULFATE 0.125 MG SUBL TABLET SL PRN ×2 (18:19→23:50)
[2022-12-25] MEDS: SCOPOLAMINE 1MG TRANSDERMAL PATCH TOP PRN (20:50)
[2022-12-26] MEDS: MORPHINE 10MG/0.5ML ORAL CONCENTRATE SOLUTION U/D SL PRN ×10 (01:18→23:38)
[2022-12-26] MEDS: LORazepam 1 MG TAB PO PRN ×7 (02:58→22:07)
[2022-12-26] MEDS: HYOSCYAMINE SULFATE 0.125 MG SUBL TABLET SL PRN ×3 (03:38→18:49)
[2022-12-26] MEDS: ROSUVASTATIN 10 MG TAB (CRESTOR) PO SCH (07:42)
[2022-12-26] MEDS: DOCUSATE SODIUM 100MG CAPSULE PO SCH (07:42)
[2022-12-26] MEDS: MIRALAX *UNIT DOSE* 17GM PACKET PO SCH (07:43)
[2022-12-26] MEDS: LIDOCAINE 5% (LIDODERM) PATCH TD SCH (07:43)
[2022-12-26] MEDS: GABAPENTIN 100 MG CAP PO SCH (07:43)
[2022-12-26] MEDS: OMEPRAZOLE 20MG CAP PO SCH (07:43)
[2022-12-27] MEDS: LORazepam 1 MG TAB PO PRN ×2 (00:19→02:55)
[2022-12-27] MEDS: HYOSCYAMINE SULFATE 0.125 MG SUBL TABLET SL PRN (00:20)
[2022-12-27] MEDS: MORPHINE 10MG/0.5ML ORAL CONCENTRATE SOLUTION U/D SL PRN (01:23)
== END 2022-12-27 03:44 | disposition expired | DRG 478 ==
LOC: M ED 14:22 → EDBD 14:22 → M ED INP 18:01 → M MSPAV 12-21 11:15
PROVIDERS: ADMIT Internal Medicine; ATTEND Internal Medicine
PROC: B246ZZZ Ultrasonography of Right and Left Heart (ICD-10-PCS; 2022-12-22)
PROC: 0QBS3ZX Excision of Coccyx, Percutaneous Approach, Diagnostic (ICD-10-PCS; principal; 2022-12-23 15:30)
DX: C41.4 Malignant neoplasm of pelvic bones, sacrum and coccyx (principal); E87.20 Acidosis, unspecified; C78.7 Secondary malignant neoplasm of liver and intrahepatic bile duct; C78.00 Secondary malignant neoplasm of unspecified lung; C79.89 Secondary malignant neoplasm of other specified sites; Z66 Do not resuscitate; I10 Essential (primary) hypertension; E11.9 Type 2 diabetes mellitus without complications; E78.5 Hyperlipidemia, unspecified; R74.01 Elevation of levels of liver transaminase levels; E04.1 Nontoxic single thyroid nodule; R32 Unspecified urinary incontinence; I46.9 Cardiac arrest, cause unspecified; M19.90 Unspecified osteoarthritis, unspecified site; R15.9 Full incontinence of feces; M48.00 Spinal stenosis, site unspecified; R57.1 Hypovolemic shock; K21.9 Gastro-esophageal reflux disease without esophagitis; E86.0 Dehydration; Z90.49 Acquired absence of other specified parts of digestive tract; Z79.82 Long term (current) use of aspirin; Z79.84 Long term (current) use of oral hypoglycemic drugs; Z79.899 Other long term (current) drug therapy; Z20.822 Contact with and (suspected) exposure to COVID-19; T17.908A Unspecified foreign body in respiratory tract, part unspecified causing other injury, initial encounter